=== PATIENT | female | born 2000 | race Caucasian/White ===

== ENCOUNTER 2021-07-04 09:56 | Emergency (ER) | payer MEDICAID, OTHER ==
[~2021-07-04] VITALS: Ht 154.9 cm; Wt 68.2 kg
[2021-07-04 10:01] VITALS: BP 132/74
[2021-07-04 12:15] LABS: APPEARANCE,URINE CLEAR (CLEAR); BILIRUBIN,URINE NEGATIVE (NEGATIVE); GLUCOSE, URINE (UA) NEGATIVE (NEGATIVE); KETONES,URINE NEGATIVE (NEGATIVE); LEUKOCYTE ESTERASE ,URINE TRACE (NEGATIVE); NITRATE,URINE POSITIVE (NEGATIVE); OCCULT BLOOD,URINE MODERATE (NEGATIVE); PROTEIN,URINE NEGATIVE (NEGATIVE); UROBILINOGEN,URINE 0.2 mg/dL (<=1.0)
[2021-07-04 12:25] LABS: BACTERIA,URINE Few /HPF (None Seen); WBC,URINE 0-2 /HPF (0-5)
== END 2021-07-04 12:03 | disposition home or self-care (01) ==
LOC: EMS 10:05
DX: N39.0 Urinary tract infection, site not specified (principal)
CPT/HCPCS: 81001; 81002; 99283